=== PATIENT | female | born 1935 | race Two or more races ===

== ENCOUNTER → 2022-04-19 | Emergency (ER) | payer MEDICARE, BC ==
[~2022-04-19] VITALS: Ht 165.1 cm; Wt 68.0 kg
[2022-04-19 18:51] LABS: CLARITY URINE CLEAR (CLEAR); COLOR URINE YELLOW (YELLOW); KETONES URINE NEGATIVE (NEGATIVE); LEUKOCYTE ESTERASE URINE NEGATIVE (NEGATIVE); NITRITE URINE NEGATIVE (NEGATIVE); OCCULT BLOOD URINE NEGATIVE (NEGATIVE); PROTEIN URINE NEGATIVE (NEGATIVE); UROBILINOGEN URINE 0.2 E.U./dL (0.2-1.0)
[2022-04-19 18:55] LABS: BASOPHILS % 0.5 % (0.0-2.0); EOSINOPHILS % 1.4 % (0.0-5.0); HEMATOCRIT. 40.5 % (36.0-48.0); HEMOGLOBIN. 13.4 g/dL (12.0-16.0); LYMPHOCYTES % 12.9 % (20.0-50.0); MEAN CORPUSCULAR VOLUME 90.4 fL (81.0-99.0); MEAN PLATELET VOLUME 7.8 fl (7.4-10.4); MONOCYTES % 5.6 % (2.0-8.0); NEUTROPHILS % 79.6 % (40.0-76.0); PLATELET 283 x1000/uL (130-400); RED BLOOD CELL COUNT 4.48 mill/uL (4.2-5.4); RED CELL DISTRIBUTION WIDTH 15.6 % (11.6-14.6)
[2022-04-19 19:10] LABS: CHLORIDE 107 mEq/L (98-107)
[2022-04-19 23:38] VITALS: BP 158/98
== END | disposition left against medical advice (07) ==
LOC: ER 16:22
DX: R55 Syncope and collapse (principal); I10 Essential (primary) hypertension; F03.90 Unspecified dementia, unspecified severity, without behavioral disturbance, psychotic disturbance, mood disturbance, and anxiety
CPT/HCPCS: 36415; 71045; 80053; 81003; 83735; 84484; 85025; 93005; 99285

== ENCOUNTER 2022-08-13 17:31 | Inpatient (IN) | payer MEDICARE, BC ==
[~2022-08-13] VITALS: Ht 162.6 cm; Wt 57.6 kg
[2022-08-13] MEDS ORDERED: SODIUM CHLORIDE 0.9% 1000ML BAG (SEPSIS BOLUS) IV ONE (18:00)
[2022-08-13] MEDS ORDERED: CEFTRIAXONE 1 G PREMIX 50 ML IV ONE (18:15)
[2022-08-13 18:22] LABS: BASOPHILS % 0.6 % (0.0-2.0); EOSINOPHILS % 2.1 % (0.0-5.0); HEMATOCRIT. 39.5 % (36.0-48.0); HEMOGLOBIN. 13.2 g/dL (12.0-16.0); LYMPHOCYTES % 28.1 % (20.0-50.0); MEAN CORPUSCULAR VOLUME 92.9 fL (81.0-99.0); MEAN PLATELET VOLUME 7.8 fl (7.4-10.4); NEUTROPHILS % 62.2 % (40.0-76.0); PLATELET 342 x1000/uL (130-400); RED BLOOD CELL COUNT 4.25 mill/uL (4.2-5.4); RED CELL DISTRIBUTION WIDTH 17.1 % (11.6-14.6)
[2022-08-13 18:24] LABS: CHLORIDE 106 mEq/L (98-107)
[2022-08-13 18:34] LABS: PROTHROMBIN TIME 10.8 sec (9.6-11.0)
[2022-08-13 18:59] LABS: CLARITY URINE CLEAR (CLEAR); COLOR URINE YELLOW (YELLOW); KETONES URINE NEGATIVE (NEGATIVE); LEUKOCYTE ESTERASE URINE TRACE (NEGATIVE); NITRITE URINE NEGATIVE (NEGATIVE); OCCULT BLOOD URINE NEGATIVE (NEGATIVE); PH URINE 7.5 (4.5-8.0); PROTEIN URINE NEGATIVE (NEGATIVE); SPECIFIC GRAVITY URINE 1.009 (1.005-1.030); UROBILINOGEN URINE 0.2 E.U./dL (0.2-1.0)
[2022-08-13 22:56] VITALS: BP 138/70
[2022-08-13 23:00] VITALS: BP 138/70
[2022-08-13] MEDS ORDERED: METO25TA6 PO (23:02)
[2022-08-13] MEDS ORDERED: ATOR-2 MT (23:02)
[2022-08-13] MEDS ORDERED: NIFE-33 MT (23:02)
[2022-08-13] MEDS ORDERED: CLOP75TA33 MT (23:02)
[2022-08-13] MEDS ORDERED: ASPI-1497 MT (23:02)
[2022-08-13] MEDS ORDERED: ACETAMINOPHEN 325MG TABLET PO PRN (23:45)
[2022-08-14] VITALS: BP 138/70
[2022-08-14 04:00] VITALS: BP_SYST 150; BP_SYST 152; BP_DIAS 80; BP_DIAS 82
[2022-08-14 08:00] VITALS: BP 161/84
[2022-08-14] MEDS: ASPIRIN 81MG EC TABLET PO SCH (08:09)
[2022-08-14] MEDS: NIFEDIPINE XL 30MG TAB PO SCH (08:09)
[2022-08-14] MEDS: CLOPIDOGREL 75MG TABLET PO SCH (08:10)
[2022-08-14 12:00] VITALS: BP 154/75
[2022-08-14] MEDS ORDERED: POTASSIUM CHLORIDE 20MEQ TABLET SR PO NR (12:00)
[2022-08-14 16:00] VITALS: BP_SYST 133; BP_SYST 134; BP_SYST 139; BP_DIAS 73; BP_DIAS 79
[2022-08-14 16:09] LABS: BASOPHILS % 0.7 % (0.0-2.0); EOSINOPHILS % 1.6 % (0.0-5.0); HEMATOCRIT. 36.5 % (36.0-48.0); HEMOGLOBIN. 11.8 g/dL (12.0-16.0); MEAN CORPUSCULAR HEMOGLOBIN 30.5 pg (28.0-32.0); MEAN PLATELET VOLUME 8.1 fl (7.4-10.4); MONOCYTES % 11.4 % (2.0-8.0); NEUTROPHILS % 62.3 % (40.0-76.0); PLATELET 306 x1000/uL (130-400); RED BLOOD CELL COUNT 3.88 mill/uL (4.2-5.4); RED CELL DISTRIBUTION WIDTH 16.6 % (11.6-14.6)
[2022-08-14 16:25] LABS: CHLORIDE 109 mEq/L (98-107)
[2022-08-14 20:00] VITALS: BP 148/84
[2022-08-14] MEDS: ATORVASTATIN CALCIUM 40MG TABLET PO SCH (20:16)
[2022-08-15] VITALS: BP 166/90
[2022-08-15] MEDS ORDERED: CLONIDINE 0.1MG TABLET PO PRN
[2022-08-15 04:00] VITALS: BP 104/65
[2022-08-15 08:08] VITALS: BP 110/79
[2022-08-15] MEDS: CLOPIDOGREL 75MG TABLET PO SCH (09:29)
[2022-08-15] MEDS: NIFEDIPINE XL 30MG TAB PO SCH (09:29)
[2022-08-15] MEDS: ASPIRIN 81MG EC TABLET PO SCH (09:29)
[2022-08-15 12:11] VITALS: BP 103/65
[2022-08-15 12:37] LABS: BASOPHILS % 0.4 % (0.0-2.0); HEMATOCRIT. 33.3 % (36.0-48.0); HEMOGLOBIN. 10.9 g/dL (12.0-16.0); LYMPHOCYTES % 16.1 % (20.0-50.0); MEAN CORPUSCULAR VOLUME 91.8 fL (81.0-99.0); MEAN PLATELET VOLUME 7.3 fl (7.4-10.4); MONOCYTES % 10.3 % (2.0-8.0); NEUTROPHILS % 72.2 % (40.0-76.0); PLATELET 306 x1000/uL (130-400); RED BLOOD CELL COUNT 3.63 mill/uL (4.2-5.4); RED CELL DISTRIBUTION WIDTH 16.6 % (11.6-14.6)
[2022-08-15 12:54] LABS: CHLORIDE 107 mEq/L (98-107)
[2022-08-15 16:21] VITALS: BP 105/71
[2022-08-15 20:00] VITALS: BP_SYST 136; BP_SYST 145; BP_DIAS 75; BP_DIAS 85
[2022-08-15] MEDS: ATORVASTATIN CALCIUM 40MG TABLET PO SCH (20:24)
[2022-08-16] VITALS: BP 127/76
[2022-08-16 04:00] VITALS: BP 130/69
[2022-08-16 08:00] VITALS: BP 123/67
[2022-08-16] MEDS ORDERED: DOCUSATE SODIUM 250MG CAPSULE PO SCH (09:00)
[2022-08-16] MEDS: CLOPIDOGREL 75MG TABLET PO SCH (09:17)
[2022-08-16] MEDS: NIFEDIPINE XL 30MG TAB PO SCH (09:17)
[2022-08-16] MEDS: ASPIRIN 81MG EC TABLET PO SCH (09:17)
[2022-08-16 11:58] VITALS: BP 131/83
[2022-08-16 16:00] VITALS: BP 136/85
[2022-08-16 16:12] VITALS: BP 136/65
== END 2022-08-16 17:49 | DRG 73 ==
LOC: ER 17:31 → EDBEDREQSVC 20:05 → EDBEDREQTM 20:05 → EDBEDREQ 20:05 → EDBEDREQTM 20:23 → EDBEDREQ 20:23 → 7WST 23:18
PROVIDERS: ADMIT Internal Medicine; ATTEND Internal Medicine
DX: G90.8 Other disorders of autonomic nervous system (principal); G93.41 Metabolic encephalopathy; E87.20 Acidosis, unspecified; F02.80 Dementia in other diseases classified elsewhere, unspecified severity, without behavioral disturbance, psychotic disturbance, mood disturbance, and anxiety; G30.9 Alzheimer's disease, unspecified; I10 Essential (primary) hypertension; E78.00 Pure hypercholesterolemia, unspecified; E87.6 Hypokalemia; I25.10 Atherosclerotic heart disease of native coronary artery without angina pectoris; R13.10 Dysphagia, unspecified; R32 Unspecified urinary incontinence; I25.2 Old myocardial infarction; Z95.5 Presence of coronary angioplasty implant and graft
CPT/HCPCS: 36415; 71045; 80048; 80053; 81003; 83605; 83735; 84484; 85025; 93005; 93306; 97116; 97162; 97166; 97530; 99291; J0696; J7030

== ENCOUNTER 2022-08-16 18:00 | Inpatient (IN) | payer MEDICARE, BC ==
[~2022-08-16] VITALS: Ht 162.6 cm; Wt 57.6 kg
[2022-08-16 18:00] VITALS: BP 149/58
[~2022-08-16 18:00] MED LIST: ASPI-1497 MT; ATOR-2 MT; CLOP75TA33 MT; METO25TA6 PO; NIFE-33 MT
[2022-08-16] MEDS ORDERED: CLONIDINE 0.1MG TABLET PO PRN (20:15)
[2022-08-16] MEDS: ATORVASTATIN CALCIUM 40MG TABLET PO SCH (21:00)
[2022-08-16 23:43] VITALS: BP 124/83
[2022-08-17 06:51] LABS: BASOPHILS % 0.7 % (0.0-2.0); EOSINOPHILS % 2.3 % (0.0-5.0); HEMATOCRIT. 34.8 % (36.0-48.0); HEMOGLOBIN. 11.4 g/dL (12.0-16.0); LYMPHOCYTES % 28.3 % (20.0-50.0); MEAN CORPUSCULAR HEMOGLOBIN 30.1 pg (28.0-32.0); MEAN CORPUSCULAR VOLUME 91.8 fL (81.0-99.0); MEAN PLATELET VOLUME 7.3 fl (7.4-10.4); MONOCYTES % 10.5 % (2.0-8.0); NEUTROPHILS % 58.2 % (40.0-76.0); PLATELET 324 x1000/uL (130-400); RED BLOOD CELL COUNT 3.79 mill/uL (4.2-5.4); RED CELL DISTRIBUTION WIDTH 16.2 % (11.6-14.6)
[2022-08-17 08:00] VITALS: BP 137/93
[2022-08-17 08:24] LABS: CHLORIDE 108 mEq/L (98-107)
[2022-08-17] MEDS: DOCUSATE SODIUM 250MG CAPSULE PO SCH (09:02)
[2022-08-17] MEDS: ASPIRIN 81MG EC TABLET PO SCH (09:02)
[2022-08-17] MEDS: CLOPIDOGREL 75MG TABLET PO SCH (09:03)
[2022-08-17] MEDS: NIFEDIPINE XL 30MG TAB PO SCH (09:03)
[2022-08-17 20:00] VITALS: BP 146/58
[2022-08-17] MEDS: ATORVASTATIN CALCIUM 40MG TABLET PO SCH (22:24)
[2022-08-17] MEDS: LEVETIRACETAM 250MG TABLET PO SCH (22:24)
[2022-08-17 22:48] LABS: CLARITY URINE CLOUDY (CLEAR); COLOR URINE DARK YELLOW (YELLOW); KETONES URINE TRACE (NEGATIVE); LEUKOCYTE ESTERASE URINE NEGATIVE (NEGATIVE); NITRITE URINE NEGATIVE (NEGATIVE); OCCULT BLOOD URINE NEGATIVE (NEGATIVE); PROTEIN URINE TRACE (NEGATIVE); SPECIFIC GRAVITY URINE 1.031 (1.005-1.030); UROBILINOGEN URINE 0.2 E.U./dL (0.2-1.0)
[2022-08-18 08:00] VITALS: BP 132/83
[2022-08-18] MEDS: LEVETIRACETAM 250MG TABLET PO SCH ×2 (09:19→21:52)
[2022-08-18] MEDS: ASPIRIN 81MG EC TABLET PO SCH (09:19)
[2022-08-18] MEDS: CLOPIDOGREL 75MG TABLET PO SCH (09:19)
[2022-08-18] MEDS: DOCUSATE SODIUM 250MG CAPSULE PO SCH (09:19)
[2022-08-18] MEDS: NIFEDIPINE XL 30MG TAB PO SCH (09:20)
[2022-08-18] MEDS: ACETAMINOPHEN 325MG TABLET PO PRN (12:03)
[2022-08-18 16:46] LABS: CHLORIDE 106 mEq/L (98-107)
[2022-08-18 16:59] LABS: CREATINE KINASE 166 IU/L (26-192); TOTAL IRON BINDING CAPACITY 402 ug/dL (250-450)
[2022-08-18 17:18] LABS: BASOPHILS % 0.7 % (0.0-2.0); EOSINOPHILS % 1.4 % (0.0-5.0); HEMATOCRIT. 37.3 % (36.0-48.0); HEMOGLOBIN. 11.6 g/dL (12.0-16.0); LYMPHOCYTES % 20.7 % (20.0-50.0); MEAN CORPUSCULAR HEMOGLOBIN 30.3 pg (28.0-32.0); MEAN CORPUSCULAR VOLUME 97.1 fL (81.0-99.0); MEAN PLATELET VOLUME 7.5 fl (7.4-10.4); MONOCYTES % 9.6 % (2.0-8.0); NEUTROPHILS % 67.6 % (40.0-76.0); PLATELET 299 x1000/uL (130-400); RED BLOOD CELL COUNT 3.85 mill/uL (4.2-5.4); RED CELL DISTRIBUTION WIDTH 17.2 % (11.6-14.6)
[2022-08-18 20:00] VITALS: BP 114/72
[2022-08-18] MEDS: ATORVASTATIN CALCIUM 40MG TABLET PO SCH (21:53)
[2022-08-19 00:35] LABS: FOLIC ACID (FOLATE) SERUM 19.6 ng/mL (>5.38)
[2022-08-19] MEDS: ACETAMINOPHEN 325MG TABLET PO PRN (07:10)
[2022-08-19 08:00] VITALS: BP 111/71
[2022-08-19] MEDS: DOCUSATE SODIUM SUGAR FREE 100MG/10ML UDC NG SCH (08:37)
[2022-08-19] MEDS: ASPIRIN 81MG EC TABLET PO SCH (08:38)
[2022-08-19] MEDS: LEVETIRACETAM 250MG TABLET PO SCH ×2 (08:38→20:10)
[2022-08-19] MEDS: NIFEDIPINE XL 30MG TAB PO SCH (08:38)
[2022-08-19] MEDS: CLOPIDOGREL 75MG TABLET PO SCH (08:38)
[2022-08-19 20:00] VITALS: BP 133/88
[2022-08-19] MEDS: ATORVASTATIN CALCIUM 40MG TABLET PO SCH (20:10)
[2022-08-20 07:10] LABS: CHLORIDE 105 mEq/L (98-107)
[2022-08-20 07:21] LABS: BASOPHILS % 0.9 % (0.0-2.0); EOSINOPHILS % 3.4 % (0.0-5.0); HEMATOCRIT. 33.7 % (36.0-48.0); HEMOGLOBIN. 11.5 g/dL (12.0-16.0); LYMPHOCYTES % 30.9 % (20.0-50.0); MEAN CORPUSCULAR HEMOGLOBIN 31.7 pg (28.0-32.0); MEAN CORPUSCULAR VOLUME 93.2 fL (81.0-99.0); MEAN PLATELET VOLUME 7.5 fl (7.4-10.4); MONOCYTES % 10.2 % (2.0-8.0); NEUTROPHILS % 54.6 % (40.0-76.0); PLATELET 307 x1000/uL (130-400); RED BLOOD CELL COUNT 3.61 mill/uL (4.2-5.4); RED CELL DISTRIBUTION WIDTH 16.3 % (11.6-14.6)
[2022-08-20 08:00] VITALS: BP 122/75
[2022-08-20] MEDS: CLOPIDOGREL 75MG TABLET PO SCH (10:44)
[2022-08-20] MEDS: NIFEDIPINE XL 30MG TAB PO SCH (10:44)
[2022-08-20] MEDS: DOCUSATE SODIUM SUGAR FREE 100MG/10ML UDC NG SCH (10:44)
[2022-08-20] MEDS: ASPIRIN 81MG EC TABLET PO SCH (10:44)
[2022-08-20] MEDS: LEVETIRACETAM 250MG TABLET PO SCH ×2 (10:44→20:37)
[2022-08-20] MEDS: ACETAMINOPHEN 325MG TABLET PO PRN (14:43)
[2022-08-20 19:59] VITALS: BP 133/86
[2022-08-20] MEDS: ATORVASTATIN CALCIUM 40MG TABLET PO SCH (20:37)
[2022-08-21 08:00] VITALS: BP 140/87
[2022-08-21] MEDS: DOCUSATE SODIUM SUGAR FREE 100MG/10ML UDC PO SCH (08:49)
[2022-08-21] MEDS: LEVETIRACETAM 250MG TABLET PO SCH ×2 (08:49→20:54)
[2022-08-21] MEDS: ASPIRIN 81MG EC TABLET PO SCH (08:49)
[2022-08-21] MEDS: CLOPIDOGREL 75MG TABLET PO SCH (08:49)
[2022-08-21] MEDS: NIFEDIPINE XL 30MG TAB PO SCH (08:50)
[2022-08-21 20:00] VITALS: BP 121/81
[2022-08-21] MEDS: ATORVASTATIN CALCIUM 40MG TABLET PO SCH (20:54)
[2022-08-22 08:00] VITALS: BP 139/82
[2022-08-22] MEDS: NIFEDIPINE XL 30MG TAB PO SCH (08:37)
[2022-08-22] MEDS: LEVETIRACETAM 250MG TABLET PO SCH ×2 (08:37→21:42)
[2022-08-22] MEDS: ASPIRIN 81MG EC TABLET PO SCH (08:38)
[2022-08-22] MEDS: CLOPIDOGREL 75MG TABLET PO SCH (08:38)
[2022-08-22] MEDS: DOCUSATE SODIUM SUGAR FREE 100MG/10ML UDC PO SCH (08:41)
[2022-08-22] MEDS: ACETAMINOPHEN 325MG TABLET PO PRN (10:34)
[2022-08-22] MEDS: DICLOFENAC SODIUM 1% GEL 50GM TOP SCH ×2 (16:56→21:43)
[2022-08-22 20:00] VITALS: BP 122/74
[2022-08-22] MEDS: ATORVASTATIN CALCIUM 40MG TABLET PO SCH (21:42)
[2022-08-23 08:00] VITALS: BP 150/90
[2022-08-23] MEDS: DOCUSATE SODIUM SUGAR FREE 100MG/10ML UDC PO SCH (08:33)
[2022-08-23] MEDS: LEVETIRACETAM 250MG TABLET PO SCH ×2 (08:34→21:22)
[2022-08-23] MEDS: NIFEDIPINE XL 30MG TAB PO SCH (08:34)
[2022-08-23] MEDS: ASPIRIN 81MG EC TABLET PO SCH (08:34)
[2022-08-23] MEDS: CLOPIDOGREL 75MG TABLET PO SCH (08:34)
[2022-08-23] MEDS: LIDOCAINE 5% PATCH TOP SCH (08:34)
[2022-08-23] MEDS: DICLOFENAC SODIUM 1% GEL 50GM TOP SCH ×4 (08:35→21:00)
[2022-08-23 20:00] VITALS: BP 139/83
[2022-08-23] MEDS: ATORVASTATIN CALCIUM 40MG TABLET PO SCH (21:22)
[2022-08-24] MEDS: ACETAMINOPHEN 325MG TABLET PO PRN ×2 (02:28→10:51)
[2022-08-24 08:00] VITALS: BP 134/79
[2022-08-24] MEDS: NIFEDIPINE XL 30MG TAB PO SCH (08:12)
[2022-08-24] MEDS: LIDOCAINE 5% PATCH TOP SCH (08:12)
[2022-08-24] MEDS: LEVETIRACETAM 250MG TABLET PO SCH ×2 (08:12→21:05)
[2022-08-24] MEDS: ASPIRIN 81MG EC TABLET PO SCH (08:12)
[2022-08-24] MEDS: CLOPIDOGREL 75MG TABLET PO SCH (08:12)
[2022-08-24] MEDS: DOCUSATE SODIUM SUGAR FREE 100MG/10ML UDC PO SCH (08:19)
[2022-08-24] MEDS: DICLOFENAC SODIUM 1% GEL 50GM TOP SCH ×4 (08:19→21:07)
[2022-08-24 20:00] VITALS: BP 146/65
[2022-08-24] MEDS: ATORVASTATIN CALCIUM 40MG TABLET PO SCH (21:05)
[2022-08-25 06:51] LABS: BASOPHILS % 0.8 % (0.0-2.0); EOSINOPHILS % 2.4 % (0.0-5.0); HEMATOCRIT. 30.9 % (36.0-48.0); HEMOGLOBIN. 10.4 g/dL (12.0-16.0); LYMPHOCYTES % 25.2 % (20.0-50.0); MEAN CORPUSCULAR HEMOGLOBIN 30.9 pg (28.0-32.0); MEAN CORPUSCULAR VOLUME 91.8 fL (81.0-99.0); MEAN PLATELET VOLUME 7.6 fl (7.4-10.4); MONOCYTES % 9.7 % (2.0-8.0); NEUTROPHILS % 61.9 % (40.0-76.0); PLATELET 349 x1000/uL (130-400); RED BLOOD CELL COUNT 3.37 mill/uL (4.2-5.4); RED CELL DISTRIBUTION WIDTH 15.7 % (11.6-14.6)
[2022-08-25 08:00] VITALS: BP 144/84
[2022-08-25] MEDS: LIDOCAINE 5% PATCH TOP SCH (08:18)
[2022-08-25] MEDS: CLOPIDOGREL 75MG TABLET PO SCH (08:19)
[2022-08-25] MEDS: NIFEDIPINE XL 30MG TAB PO SCH (08:19)
[2022-08-25] MEDS: ASPIRIN 81MG EC TABLET PO SCH (08:19)
[2022-08-25] MEDS: LEVETIRACETAM 250MG TABLET PO SCH ×2 (08:19→21:53)
[2022-08-25] MEDS: DOCUSATE SODIUM SUGAR FREE 100MG/10ML UDC PO SCH (08:19)
[2022-08-25 09:02] LABS: CHLORIDE 107 mEq/L (98-107)
[2022-08-25] MEDS: DICLOFENAC SODIUM 1% GEL 50GM TOP SCH ×4 (09:06→21:54)
[2022-08-25 20:00] VITALS: BP 137/77
[2022-08-25] MEDS: ATORVASTATIN CALCIUM 40MG TABLET PO SCH (21:53)
[2022-08-26 08:00] VITALS: BP 122/77
[2022-08-26] MEDS: LEVETIRACETAM 250MG TABLET PO SCH ×2 (08:09→21:43)
[2022-08-26] MEDS: CLOPIDOGREL 75MG TABLET PO SCH (08:09)
[2022-08-26] MEDS: NIFEDIPINE XL 30MG TAB PO SCH (08:10)
[2022-08-26] MEDS: ASPIRIN 81MG EC TABLET PO SCH (08:10)
[2022-08-26] MEDS: LIDOCAINE 5% PATCH TOP SCH (08:11)
[2022-08-26] MEDS: DOCUSATE SODIUM SUGAR FREE 100MG/10ML UDC PO SCH (08:11)
[2022-08-26] MEDS: DICLOFENAC SODIUM 1% GEL 50GM TOP SCH ×4 (08:12→21:44)
[2022-08-26 20:00] VITALS: BP 113/71
[2022-08-26] MEDS: ATORVASTATIN CALCIUM 40MG TABLET PO SCH (21:43)
[2022-08-27] MEDS: ACETAMINOPHEN 325MG TABLET PO PRN ×2 (05:53→21:33)
[2022-08-27 08:00] VITALS: BP 147/80
[2022-08-27] MEDS: ASPIRIN 81MG EC TABLET PO SCH (08:52)
[2022-08-27] MEDS: LEVETIRACETAM 250MG TABLET PO SCH ×2 (08:52→21:33)
[2022-08-27] MEDS: NIFEDIPINE XL 30MG TAB PO SCH (08:52)
[2022-08-27] MEDS: DOCUSATE SODIUM SUGAR FREE 100MG/10ML UDC PO SCH (08:52)
[2022-08-27] MEDS: LIDOCAINE 5% PATCH TOP SCH (08:52)
[2022-08-27] MEDS: CLOPIDOGREL 75MG TABLET PO SCH (08:53)
[2022-08-27] MEDS: DICLOFENAC SODIUM 1% GEL 50GM TOP SCH ×4 (08:53→21:34)
[2022-08-27 20:10] VITALS: BP 136/49
[2022-08-27] MEDS: ATORVASTATIN CALCIUM 40MG TABLET PO SCH (21:33)
[2022-08-28 08:00] VITALS: BP 132/82
[2022-08-28] MEDS: CLOPIDOGREL 75MG TABLET PO SCH (08:57)
[2022-08-28] MEDS: LEVETIRACETAM 250MG TABLET PO SCH ×2 (08:57→20:19)
[2022-08-28] MEDS: ASPIRIN 81MG EC TABLET PO SCH (08:57)
[2022-08-28] MEDS: NIFEDIPINE XL 30MG TAB PO SCH (08:58)
[2022-08-28] MEDS: DOCUSATE SODIUM SUGAR FREE 100MG/10ML UDC PO SCH (08:59)
[2022-08-28] MEDS: DICLOFENAC SODIUM 1% GEL 50GM TOP SCH ×4 (08:59→20:20)
[2022-08-28] MEDS: LIDOCAINE 5% PATCH TOP SCH (08:59)
[2022-08-28 20:00] VITALS: BP 131/68
[2022-08-28] MEDS: ATORVASTATIN CALCIUM 40MG TABLET PO SCH (20:19)
[2022-08-28] MEDS: ACETAMINOPHEN 325MG TABLET PO PRN (20:20)
[2022-08-29 07:16] LABS: BASOPHILS % 0.9 % (0.0-2.0); EOSINOPHILS % 2.3 % (0.0-5.0); HEMATOCRIT. 33.1 % (36.0-48.0); HEMOGLOBIN. 11.3 g/dL (12.0-16.0); LYMPHOCYTES % 32.7 % (20.0-50.0); MEAN CORPUSCULAR HEMOGLOBIN 31.5 pg (28.0-32.0); MEAN CORPUSCULAR VOLUME 92.1 fL (81.0-99.0); MEAN PLATELET VOLUME 7.8 fl (7.4-10.4); MONOCYTES % 10.5 % (2.0-8.0); NEUTROPHILS % 53.6 % (40.0-76.0); PLATELET 325 x1000/uL (130-400); RED BLOOD CELL COUNT 3.59 mill/uL (4.2-5.4)
[2022-08-29 08:00] VITALS: BP 142/75
[2022-08-29 08:06] LABS: CHLORIDE 107 mEq/L (98-107)
[2022-08-29] MEDS: CLOPIDOGREL 75MG TABLET PO SCH (08:42)
[2022-08-29] MEDS: LEVETIRACETAM 250MG TABLET PO SCH ×2 (08:42→21:13)
[2022-08-29] MEDS: ASPIRIN 81MG EC TABLET PO SCH (08:42)
[2022-08-29] MEDS: NIFEDIPINE XL 30MG TAB PO SCH (08:43)
[2022-08-29] MEDS: DOCUSATE SODIUM SUGAR FREE 100MG/10ML UDC PO SCH (08:43)
[2022-08-29] MEDS: DICLOFENAC SODIUM 1% GEL 50GM TOP SCH ×4 (08:44→21:18)
[2022-08-29] MEDS: LIDOCAINE 5% PATCH TOP SCH (08:44)
[2022-08-29 19:59] VITALS: BP 131/76
[2022-08-29] MEDS: ATORVASTATIN CALCIUM 40MG TABLET PO SCH (21:14)
[2022-08-30 08:00] VITALS: BP 152/90
[2022-08-30] MEDS: LEVETIRACETAM 250MG TABLET PO SCH ×2 (08:43→20:30)
[2022-08-30] MEDS: DOCUSATE SODIUM SUGAR FREE 100MG/10ML UDC PO SCH (08:43)
[2022-08-30] MEDS: ASPIRIN 81MG EC TABLET PO SCH (08:43)
[2022-08-30] MEDS: CLOPIDOGREL 75MG TABLET PO SCH (08:43)
[2022-08-30] MEDS: NIFEDIPINE XL 30MG TAB PO SCH (08:44)
[2022-08-30] MEDS: ACETAMINOPHEN 325MG TABLET PO PRN ×3 (08:45→22:24)
[2022-08-30] MEDS: LIDOCAINE 5% PATCH TOP SCH (08:46)
[2022-08-30] MEDS: DICLOFENAC SODIUM 1% GEL 50GM TOP SCH ×3 (08:46→21:00)
[2022-08-30 20:20] VITALS: BP 126/49
[2022-08-30] MEDS: ATORVASTATIN CALCIUM 40MG TABLET PO SCH (20:29)
[2022-08-31] MEDS: DICLOFENAC SODIUM 1% GEL 50GM TOP SCH ×5 (06:19→21:13)
[2022-08-31 08:00] VITALS: BP 128/83
[2022-08-31] MEDS: LEVETIRACETAM 250MG TABLET PO SCH ×2 (08:52→21:12)
[2022-08-31] MEDS: CLOPIDOGREL 75MG TABLET PO SCH (08:53)
[2022-08-31] MEDS: ASPIRIN 81MG EC TABLET PO SCH (08:53)
[2022-08-31] MEDS: NIFEDIPINE XL 30MG TAB PO SCH (08:53)
[2022-08-31] MEDS: DOCUSATE SODIUM SUGAR FREE 100MG/10ML UDC PO SCH (08:54)
[2022-08-31] MEDS: LIDOCAINE 5% PATCH TOP SCH (08:55)
[2022-08-31] MEDS: ACETAMINOPHEN 325MG TABLET PO PRN (08:57)
[2022-08-31 20:00] VITALS: BP 123/62
[2022-08-31] MEDS: ATORVASTATIN CALCIUM 40MG TABLET PO SCH (21:12)
[2022-09-01 06:08] LABS: BASOPHILS % 0.9 % (0.0-2.0); EOSINOPHILS % 1.9 % (0.0-5.0); HEMATOCRIT. 31.5 % (36.0-48.0); HEMOGLOBIN. 10.7 g/dL (12.0-16.0); LYMPHOCYTES % 30.3 % (20.0-50.0); MEAN CORPUSCULAR HEMOGLOBIN 30.9 pg (28.0-32.0); MEAN PLATELET VOLUME 7.5 fl (7.4-10.4); MONOCYTES % 10.5 % (2.0-8.0); NEUTROPHILS % 56.4 % (40.0-76.0); PLATELET 308 x1000/uL (130-400); RED BLOOD CELL COUNT 3.46 mill/uL (4.2-5.4); RED CELL DISTRIBUTION WIDTH 16.3 % (11.6-14.6)
[2022-09-01 06:43] LABS: CHLORIDE 110 mEq/L (98-107)
[2022-09-01 08:00] VITALS: BP 149/84
[2022-09-01] MEDS: DICLOFENAC SODIUM 1% GEL 50GM TOP SCH ×2 (09:00→21:32)
[2022-09-01] MEDS: DOCUSATE SODIUM SUGAR FREE 100MG/10ML UDC PO SCH (10:40)
[2022-09-01] MEDS: ACETAMINOPHEN 325MG TABLET PO PRN (10:40)
[2022-09-01] MEDS: NIFEDIPINE XL 30MG TAB PO SCH (10:41)
[2022-09-01] MEDS: LIDOCAINE 5% PATCH TOP SCH (10:42)
[2022-09-01] MEDS: ASPIRIN 81MG EC TABLET PO SCH (10:42)
[2022-09-01] MEDS: CLOPIDOGREL 75MG TABLET PO SCH (10:43)
[2022-09-01] MEDS: LEVETIRACETAM 250MG TABLET PO SCH ×2 (10:43→21:30)
[2022-09-01 20:00] VITALS: BP 132/85
[2022-09-01] MEDS: ATORVASTATIN CALCIUM 40MG TABLET PO SCH (21:30)
[2022-09-02 08:00] VITALS: BP 132/78
[2022-09-02] MEDS ORDERED: ENOXAPARIN 40MG/0.4ML SYR SUBCUT SCH (09:00)
[2022-09-02] MEDS: DICLOFENAC SODIUM 1% GEL 50GM TOP SCH ×2 (09:00→13:59)
[2022-09-02] MEDS: NIFEDIPINE XL 30MG TAB PO SCH (09:00)
[2022-09-02] MEDS: DOCUSATE SODIUM SUGAR FREE 100MG/10ML UDC PO SCH (09:42)
[2022-09-02] MEDS: CLOPIDOGREL 75MG TABLET PO SCH (09:43)
[2022-09-02] MEDS: ASPIRIN 81MG EC TABLET PO SCH (09:43)
[2022-09-02] MEDS: LEVETIRACETAM 250MG TABLET PO SCH (09:43)
[2022-09-02] MEDS: LIDOCAINE 5% PATCH TOP SCH (09:44)
[2022-09-02 12:13] VITALS: BP 132/78
[2022-09-02] MEDS: ACETAMINOPHEN 325MG TABLET PO PRN (13:58)
== END 2022-09-02 15:07 | disposition home or self-care (01) | DRG 71 ==
PROVIDERS: ADMIT Physical Medicine & Rehabilitation Spinal Cord Injury Medicine; ATTEND Internal Medicine
DX: G93.41 Metabolic encephalopathy (principal); E44.1 Mild protein-calorie malnutrition; F02.83 Dementia in other diseases classified elsewhere, unspecified severity, with mood disturbance; F02.84 Dementia in other diseases classified elsewhere, unspecified severity, with anxiety; I10 Essential (primary) hypertension; E78.00 Pure hypercholesterolemia, unspecified; F32.A Depression, unspecified; G30.9 Alzheimer's disease, unspecified; I25.10 Atherosclerotic heart disease of native coronary artery without angina pectoris; R13.10 Dysphagia, unspecified; R32 Unspecified urinary incontinence; Z20.822 Contact with and (suspected) exposure to COVID-19; R55 Syncope and collapse; D64.9 Anemia, unspecified; R29.6 Repeated falls; R53.81 Other malaise; I95.9 Hypotension, unspecified; R26.81 Unsteadiness on feet; G90.8 Other disorders of autonomic nervous system; Z96.651 Presence of right artificial knee joint; Z79.899 Other long term (current) drug therapy; I25.2 Old myocardial infarction; Z82.49 Family history of ischemic heart disease and other diseases of the circulatory system; Z91.81 History of falling; Z95.5 Presence of coronary angioplasty implant and graft; Z79.82 Long term (current) use of aspirin; Z68.21 Body mass index [BMI] 21.0-21.9, adult
CPT/HCPCS: 36415; 71045; 73560; 80048; 80053; 81003; 82140; 82306; 82550; 82607; 82728; 82746; 83036; 83540; 83550; 84134; 84443; 85025; 87426; 92523; 92610; 93970; 93971; 97110; 97112; 97116; 97140; 97161; 97166; 97530; 97535; J1650